=== PATIENT | female | born 1960 | race Hispanic/Latino ===

== ENCOUNTER 2020-10-08 04:16 | Inpatient (IN) | payer BC ==
[2020-10-08] MEDS ORDERED: Morphine 4 MG/ML VIAL ONE (04:44)
[2020-10-08] MEDS ORDERED: Ondansetron PF 4 MG/2 ML Vial ONE (04:45)
[2020-10-08 04:51] LABS: #Basophils 0.1 10x3/uL (0.0-0.2); #Eosinphils 0.1 10x3/uL (0.0-0.5); #Monocytes 0.7 10x3/uL (0.0-1.1); #Neutrophils 10.9 10x3/uL (1.5-8.4); %Basophils 0.4 % (0.0-2.0); %Eosinophils 0.7 % (0.0-6.0); %Lymphocytes 10.9 % (18.0-47.0); %Neutrophils 82.2 % (40.0-75.0); Hemoglobin 13.5 g/dL (12.0-15.5); Mean Corpuscular HGB CONC 34.6 g/dL (32.0-36.0); Mean Corpuscular Hemoglobin 31.2 pg (27.0-33.0); Mean Corpuscular Volume 90.1 fl (81.6-98.3); Platelet Count 248 10x3/uL (150-450); RBC Distribution Width 11.9 % (11.5-14.5); Red Blood Cell (RBC) Count 4.33 10x6/uL (3.90-5.03); White Blood Cell (WBC) Count 13.3 10x3/uL (3.5-10.5)
[2020-10-08 05:06] LABS: ALT (SGPT) 75 U/L (8-55); AST (SGOT) 117 U/L (5-34); Albumin 4.3 g/dL (3.5-5.0); Alkaline Phosphatase 96 U/L (40-110); Anion Gap 14 mmol/L (10-20); BUN (Urea Nitrogen) 17 mg/dL (9.8-20.1); Bilirubin, Total 0.8 mg/dL (0.2-1.2); Calc. Creatinine Clearance 0 mL/min (70-130); Calcium 9.6 mg/dL (7.8-10.44); Carbon Dioxide 24 mmol/L (22-29); Chloride 104 mmol/L (98-107); Glucose 164 mg/dL (70-105); Lipase 31 U/L (8-78); Potassium 4.1 mmol/L (3.5-5.1); Protein, Total 7.3 g/dL (6.0-8.3); Sodium 138 mmol/L (136-145)
[2020-10-08] MEDS ORDERED: Piperacillin/Tazobactam 4.5 GM VIAL ONE (06:12)
[2020-10-08] MEDS ORDERED: Senokot S 8.6-50 MG TAB PO PRN (06:22)
[2020-10-08] MEDS ORDERED: Zolpidem Tartrate 5 MG TAB PO PRN (06:22)
[2020-10-08] MEDS ORDERED: Calcium Carbonate 500 MG ChewTAB PO PRN (06:22)
[2020-10-08] MEDS ORDERED: HYDROmorphone 0.5 MG/0.5 ML SYRINGE ONE (06:35)
[2020-10-08 07:18] VITALS: BMI 25.7
[2020-10-08 07:29] LABS: SARS-CoV-2 NAA Rapid Test Not Detected (NotDetected)
[2020-10-08] MEDS: Sodium Chloride 0.9% 1,000 ML IV SCH ×3 (11:01→21:56)
[2020-10-08] MEDS: Famotidine/PF 20 mg/2ml Vial SLOW IVP SCH ×2 (11:05→21:03)
[2020-10-08] MEDS: Piperacillin/Tazobactam 3.375 GM in Sodium Chloride 0.9% 100 ML IVPB SCH ×2 (11:05→18:33)
[2020-10-08] MEDS: Enoxaparin Sodium 40 MG/0.4 ML SYRINGE SC SCH (11:11)
[2020-10-08 11:32] LABS: Bilirubin Neg (Negative); Blood, Urine Negative (Negative); Clarity Clear (Clear); Glucose, Urine (Dipstick) Normal (Negative); Ketone, Urine Negative (Negative); Leukocyte Negative (Negative); Nitrite Negative (Negative); Protein, Urine (Dipstick) Negative (Neg-Trace); Urobilinogen Normal mg/dL (Less than 2)
[2020-10-08 12:20] LABS: RBC/HPF 0-3 HPF (0-3); Squamous Epithelial 0-3 HPF (0-3); Transitional Epithelial 0-3 HPF (None Seen); WBC/HPF None Seen HPF (0-3)
[2020-10-08 12:21] LABS: Bacteria/HPF Rare-Few HPF (None Seen)
[2020-10-08] MEDS: Morphine 4 MG/ML VIAL SLOW IVP PRN ×3 (13:44→23:33)
[2020-10-08] MEDS: Ondansetron PF 4 MG/2 ML Vial IVP PRN (18:38)
[2020-10-09] MEDS: Piperacillin/Tazobactam 3.375 GM in Sodium Chloride 0.9% 100 ML IVPB SCH ×3 (02:43→18:25)
[2020-10-09] MEDS: Sodium Chloride 0.9% 1,000 ML IV SCH ×3 (05:03→23:25)
[2020-10-09] MEDS: Morphine 4 MG/ML VIAL SLOW IVP PRN ×3 (05:05→19:59)
[2020-10-09 05:19] LABS: #Eosinphils 0.1 10x3/uL (0.0-0.5); #Monocytes 0.6 10x3/uL (0.0-1.1); #Neutrophils 5.1 10x3/uL (1.5-8.4); %Basophils 0.3 % (0.0-2.0); %Eosinophils 1.3 % (0.0-6.0); %Lymphocytes 16.4 % (18.0-47.0); %Monocytes 8.2 % (0.0-10.0); %Neutrophils 73.4 % (40.0-75.0); Hemoglobin 11.4 g/dL (12.0-15.5); Mean Corpuscular HGB CONC 33.6 g/dL (32.0-36.0); Mean Corpuscular Hemoglobin 31.1 pg (27.0-33.0); Mean Corpuscular Volume 92.6 fl (81.6-98.3); Mean Platelet Volume 10.4 fl (7.4-10.4); Platelet Count 188 10x3/uL (150-450); Red Blood Cell (RBC) Count 3.66 10x6/uL (3.90-5.03)
[2020-10-09 05:35] LABS: ALT (SGPT) 376 U/L (8-55); AST (SGOT) 237 U/L (5-34); Albumin 3.4 g/dL (3.5-5.0); Alkaline Phosphatase 88 U/L (40-110); Anion Gap 9 mmol/L (10-20); BUN (Urea Nitrogen) 7 mg/dL (9.8-20.1); Bilirubin, Total 0.7 mg/dL (0.2-1.2); Calc. Creatinine Clearance 90 mL/min (70-130); Calcium 8.4 mg/dL (7.8-10.44); Carbon Dioxide 25 mmol/L (22-29); Chloride 111 mmol/L (98-107); Globulin 2.6 g/dL (2.4-3.5); Glucose 103 mg/dL (70-105); Potassium 3.7 mmol/L (3.5-5.1); Sodium 141 mmol/L (136-145)
[2020-10-09] MEDS: Enoxaparin Sodium 40 MG/0.4 ML SYRINGE SC SCH (09:44)
[2020-10-09] MEDS: Famotidine/PF 20 mg/2ml Vial SLOW IVP SCH ×2 (09:45→21:16)
[2020-10-09] MEDS: Ondansetron PF 4 MG/2 ML Vial IVP PRN (11:07)
[2020-10-10] MEDS: Morphine 4 MG/ML VIAL SLOW IVP PRN ×4 (01:53→19:37)
[2020-10-10] MEDS: Piperacillin/Tazobactam 3.375 GM in Sodium Chloride 0.9% 100 ML IVPB SCH ×3 (01:56→17:46)
[2020-10-10 06:37] LABS: #Eosinphils 0.1 10x3/uL (0.0-0.5); #Monocytes 0.5 10x3/uL (0.0-1.1); #Neutrophils 3.5 10x3/uL (1.5-8.4); %Basophils 0.4 % (0.0-2.0); %Eosinophils 1.8 % (0.0-6.0); %Lymphocytes 26.1 % (18.0-47.0); %Monocytes 9.3 % (0.0-10.0); %Neutrophils 62.2 % (40.0-75.0); Hemoglobin 11.7 g/dL (12.0-15.5); Mean Corpuscular HGB CONC 34.4 g/dL (32.0-36.0); Mean Corpuscular Hemoglobin 31.5 pg (27.0-33.0); Mean Corpuscular Volume 91.4 fl (81.6-98.3); Mean Platelet Volume 10.5 fl (7.4-10.4); Platelet Count 178 10x3/uL (150-450); RBC Distribution Width 11.6 % (11.5-14.5); Red Blood Cell (RBC) Count 3.72 10x6/uL (3.90-5.03); White Blood Cell (WBC) Count 5.6 10x3/uL (3.5-10.5)
[2020-10-10 06:58] LABS: ALT (SGPT) 249 U/L (8-55); AST (SGOT) 103 U/L (5-34); Albumin 3.5 g/dL (3.5-5.0); Alkaline Phosphatase 93 U/L (40-110); Anion Gap 13 mmol/L (10-20); BUN (Urea Nitrogen) 5 mg/dL (9.8-20.1); Bilirubin, Total 0.6 mg/dL (0.2-1.2); Calc. Creatinine Clearance 97 mL/min (70-130); Calcium 8.5 mg/dL (7.8-10.44); Carbon Dioxide 22 mmol/L (22-29); Chloride 107 mmol/L (98-107); Globulin 2.8 g/dL (2.4-3.5); Glucose 66 mg/dL (70-105); Potassium 3.4 mmol/L (3.5-5.1); Protein, Total 6.3 g/dL (6.0-8.3); Sodium 139 mmol/L (136-145)
[2020-10-10] MEDS: Enoxaparin Sodium 40 MG/0.4 ML SYRINGE SC SCH (09:05)
[2020-10-10] MEDS: Famotidine/PF 20 mg/2ml Vial SLOW IVP SCH ×2 (09:05→21:14)
[2020-10-10] MEDS: Sodium Chloride 0.9% 1,000 ML IV SCH ×2 (09:08→14:14)
[2020-10-11] MEDS: Sodium Chloride 0.9% 1,000 ML IV SCH ×4 (00:57→21:16)
[2020-10-11] MEDS: Piperacillin/Tazobactam 3.375 GM in Sodium Chloride 0.9% 100 ML IVPB SCH ×3 (02:08→18:56)
[2020-10-11] MEDS: Morphine 4 MG/ML VIAL SLOW IVP PRN ×3 (02:15→19:00)
[2020-10-11] MEDS: Ondansetron PF 4 MG/2 ML Vial IVP PRN (08:02)
[2020-10-11] MEDS: Famotidine/PF 20 mg/2ml Vial SLOW IVP SCH ×2 (08:02→21:16)
[2020-10-11] MEDS: Enoxaparin Sodium 40 MG/0.4 ML SYRINGE SC SCH (08:02)
[2020-10-12] MEDS: Morphine 4 MG/ML VIAL SLOW IVP PRN ×4 (00:03→20:37)
[2020-10-12] MEDS: Piperacillin/Tazobactam 3.375 GM in Sodium Chloride 0.9% 100 ML IVPB SCH ×3 (01:45→19:00)
[2020-10-12] MEDS: Sodium Chloride 0.9% 1,000 ML IV SCH ×3 (05:00→20:38)
[2020-10-12 05:18] LABS: #Eosinphils 0.2 10x3/uL (0.0-0.5); #Monocytes 0.5 10x3/uL (0.0-1.1); #Neutrophils 2.3 10x3/uL (1.5-8.4); %Basophils 0.8 % (0.0-2.0); %Eosinophils 4.1 % (0.0-6.0); %Lymphocytes 36.9 % (18.0-47.0); Hemoglobin 11.6 g/dL (12.0-15.5); Mean Corpuscular HGB CONC 34.6 g/dL (32.0-36.0); Mean Corpuscular Hemoglobin 31.1 pg (27.0-33.0); Mean Corpuscular Volume 89.8 fl (81.6-98.3); Mean Platelet Volume 10.1 fl (7.4-10.4); Platelet Count 222 10x3/uL (150-450); RBC Distribution Width 11.7 % (11.5-14.5); Red Blood Cell (RBC) Count 3.73 10x6/uL (3.90-5.03); White Blood Cell (WBC) Count 4.9 10x3/uL (3.5-10.5)
[2020-10-12 05:29] LABS: ALT (SGPT) 135 U/L (8-55); AST (SGOT) 36 U/L (5-34); Albumin 3.5 g/dL (3.5-5.0); Alkaline Phosphatase 103 U/L (40-110); Anion Gap 12 mmol/L (10-20); BUN (Urea Nitrogen) 4 mg/dL (9.8-20.1); Bilirubin, Total 0.4 mg/dL (0.2-1.2); Calc. Creatinine Clearance 99 mL/min (70-130); Calcium 8.7 mg/dL (7.8-10.44); Carbon Dioxide 25 mmol/L (22-29); Chloride 108 mmol/L (98-107); Globulin 2.8 g/dL (2.4-3.5); Glucose 97 mg/dL (70-105); Potassium 3.5 mmol/L (3.5-5.1); Protein, Total 6.3 g/dL (6.0-8.3); Sodium 141 mmol/L (136-145)
[2020-10-12] MEDS: Enoxaparin Sodium 40 MG/0.4 ML SYRINGE SC SCH (07:58)
[2020-10-12] MEDS: Famotidine/PF 20 mg/2ml Vial SLOW IVP SCH ×2 (07:59→20:36)
[2020-10-12] MEDS: Ondansetron PF 4 MG/2 ML Vial IVP PRN (07:59)
[2020-10-12] MEDS ORDERED: Promethazine HCl 25 MG/ML VIAL ONE (12:49)
[2020-10-12] MEDS ORDERED: Promethazine HCl 12.5 MG in Sodium Chloride 0.9% 50 ML IVPB PRN (15:11)
[2020-10-13] MEDS: Morphine 4 MG/ML VIAL SLOW IVP PRN ×2 (04:26→16:35)
[2020-10-13] MEDS: Piperacillin/Tazobactam 3.375 GM in Sodium Chloride 0.9% 100 ML IVPB SCH ×2 (04:29→10:50)
[2020-10-13] MEDS: Sodium Chloride 0.9% 1,000 ML IV SCH ×3 (06:15→23:32)
[2020-10-13] MEDS: Enoxaparin Sodium 40 MG/0.4 ML SYRINGE SC SCH (08:53)
[2020-10-13] MEDS: Famotidine/PF 20 mg/2ml Vial SLOW IVP SCH ×2 (08:53→21:20)
[2020-10-13] MEDS: Ondansetron PF 4 MG/2 ML Vial IVP PRN (10:45)
[2020-10-13] MEDS: HYDROcodone/Acetaminophen 5/325 mg Tablet PO PRN (21:20)
[2020-10-14] MEDS: HYDROcodone/Acetaminophen 5/325 mg Tablet PO PRN (02:44)
[2020-10-14 04:10] LABS: #Eosinphils 0.2 10x3/uL (0.0-0.5); #Monocytes 0.5 10x3/uL (0.0-1.1); #Neutrophils 2.5 10x3/uL (1.5-8.4); %Basophils 0.7 % (0.0-2.0); %Eosinophils 3.9 % (0.0-6.0); %Lymphocytes 41.1 % (18.0-47.0); %Monocytes 9.3 % (0.0-10.0); %Neutrophils 44.8 % (40.0-75.0); Hemoglobin 11.5 g/dL (12.0-15.5); Mean Corpuscular HGB CONC 34.6 g/dL (32.0-36.0); Mean Corpuscular Hemoglobin 30.3 pg (27.0-33.0); Mean Corpuscular Volume 87.6 fl (81.6-98.3); Mean Platelet Volume 9.9 fl (7.4-10.4); Platelet Count 238 10x3/uL (150-450); RBC Distribution Width 11.9 % (11.5-14.5); Red Blood Cell (RBC) Count 3.79 10x6/uL (3.90-5.03); White Blood Cell (WBC) Count 5.6 10x3/uL (3.5-10.5)
[2020-10-14 04:27] LABS: ALT (SGPT) 100 U/L (8-55); AST (SGOT) 39 U/L (5-34); Albumin 3.4 g/dL (3.5-5.0); Alkaline Phosphatase 96 U/L (40-110); Anion Gap 14 mmol/L (10-20); BUN (Urea Nitrogen) 4 mg/dL (9.8-20.1); Bilirubin, Total 0.4 mg/dL (0.2-1.2); Calc. Creatinine Clearance 93 mL/min (70-130); Calcium 8.7 mg/dL (7.8-10.44); Carbon Dioxide 25 mmol/L (22-29); Chloride 109 mmol/L (98-107); Globulin 2.6 g/dL (2.4-3.5); Glucose 91 mg/dL (70-105); Potassium 3.6 mmol/L (3.5-5.1); Sodium 144 mmol/L (136-145)
[2020-10-14] MEDS: Ondansetron PF 4 MG/2 ML Vial IVP PRN (05:15)
[2020-10-14] MEDS: Enoxaparin Sodium 40 MG/0.4 ML SYRINGE SC SCH (09:07)
[2020-10-14] MEDS: Famotidine/PF 20 mg/2ml Vial SLOW IVP SCH (09:11)
[2020-10-14 13:13] LABS: SARS-CoV-2 NAA Rapid Test Not Detected (NotDetected)
[2020-10-14 16:16] VITALS: BP 169/93; TEMP 97.7
== END 2020-10-14 16:44 | disposition home or self-care (01) | DRG 446 ==
LOC: CSHERS 04:16 → CSHTELE 07:11
PROVIDERS: ADMIT Student in an Organized Health Care Education/Training Program; ATTEND Family Medicine
DX: K83.1 Obstruction of bile duct (principal); R74.01 Elevation of levels of liver transaminase levels; E78.5 Hyperlipidemia, unspecified; Z20.822 Contact with and (suspected) exposure to COVID-19; Z90.49 Acquired absence of other specified parts of digestive tract; Z83.3 Family history of diabetes mellitus; D72.829 Elevated white blood cell count, unspecified; K83.8 Other specified diseases of biliary tract; R79.89 Other specified abnormal findings of blood chemistry
CPT/HCPCS: 36415; 74177; 74181; 80053; 81001; 83690; 84484; 85025; 93005; 96365; 96375; J1170; J1650; J2270; J2405; J2543; J2550; J3490; J7050; S0028; U0002

== ENCOUNTER 2021-02-19 08:21 | Emergency (ER) | payer BC ==
[2021-02-19] MEDS ORDERED: Bicillin LA 1.2 MILLION UNITS/2 ML SYRINGE ONE (08:47)
== END 2021-02-19 08:50 | disposition home or self-care (01) ==
LOC: CSHERS 08:21
DX: J02.0 Streptococcal pharyngitis (principal)
CPT/HCPCS: 96372; 99282; J0561

== ENCOUNTER 2022-09-28 08:30 | Outpatient (CLI) | payer BC ==
[2022-09-28] MEDS ORDERED: Magnevist 469MG/ML 20 ML VIAL ONE (15:14)
== END 2022-09-28 08:31 | disposition home or self-care (01) ==
LOC: CSHMRI 08:30
PROVIDERS: ATTEND Physician Assistant Medical
DX: K86.1 Other chronic pancreatitis (principal); R10.11 Right upper quadrant pain; K83.1 Obstruction of bile duct
CPT/HCPCS: 74183; A9579

== ENCOUNTER 2024-03-19 17:44 | Emergency (ER) | payer OTHER ==
[~2024-03-19 17:44] MED LIST: Iopamidol 300 61% 100 ML VIAL FS ONE
[2024-03-19] MEDS ORDERED: Ondansetron PF 4 MG/2 ML Vial ONE (18:36)
[2024-03-19] MEDS ORDERED: Morphine 4 MG/ML VIAL ONE (18:36)
[2024-03-19 18:56] LABS: #Basophils 0.04 10x3/uL (0.0-0.2); #Eosinphils 0.02 10x3/uL (0.0-0.5); #Monocytes 0.65 10x3/uL (0.0-1.1); #Neutrophils 13.63 10x3/uL (1.5-8.4); %Basophils 0.2 % (0.0-2.0); %Eosinophils 0.1 % (0.0-6.0); %Lymphocytes 10.8 % (18.0-47.0); %Neutrophils 84.5 % (40.0-75.0); Hematocrit 37.8 % (34.9-44.5); Hemoglobin 12.8 g/dL (12.0-15.5); Mean Corpuscular HGB CONC 33.9 g/dL (32.0-36.0); Mean Corpuscular Hemoglobin 30.4 pg (27.0-33.0); Mean Corpuscular Volume 89.8 fL (81.6-98.3); Mean Platelet Volume 9.9 fL (7.4-10.4); Platelet Count 333 10x3/uL (150-450); Red Blood Cell (RBC) Count 4.21 10x6/uL (3.90-5.03); White Blood Cell (WBC) Count 16.2 10x3/uL (3.5-10.5)
[2024-03-19 18:58] LABS: ALT (SGPT) 349 U/L (8-55); AST (SGOT) 324 U/L (5-34); Alkaline Phosphatase 419 U/L (40-110); Anion Gap 17 mmol/L (10-20); BUN (Urea Nitrogen) 9 mg/dL (9.8-20.1); Bilirubin, Total 1.4 mg/dL (0.2-1.2); Calc. Creatinine Clearance 0 mL/min (70-130); Carbon Dioxide 22 mmol/L (23-31); Chloride 103 mmol/L (98-107); Estimated GFR 87; Globulin 3.8 g/dL (2.4-3.5); Glucose 110 mg/dL (80-115); Lipase 61 U/L (8-78); Potassium 3.5 mmol/L (3.5-5.1); Protein, Total 7.8 g/dL (5.8-8.1); Sodium 138 mmol/L (136-145)
[2024-03-19 19:22] LABS: Magnesium 2.1 mg/dL (1.6-2.6)
[2024-03-19 19:26] LABS: Bilirubin Neg (Negative); Blood, Urine Negative (Negative); Clarity Cloudy (Clear); Glucose, Urine (Dipstick) Normal (Negative); Ketone, Urine 150 mg/dL (Negative); Leukocyte 100 (Negative); Nitrite Negative (Negative); Protein, Urine (Dipstick) 15 mg/dl (Neg-Trace); Specific Gravity, Urine 1.015 (1.005-1.030); Urobilinogen Normal mg/dL (Less than 2)
[2024-03-19 19:54] LABS: Bacteria/HPF 2+ HPF (None Seen); CAUTI Indications for Culture Pelvic or flank pain; Mucous/LPF 1+ LPF (<2+); RBC/HPF 0-3 HPF (0-3); Squamous Epithelial 0-3 HPF (0-3); Transitional Epithelial 0-3 HPF (None Seen)
[2024-03-19 19:57] LABS: Urine Culture Reflex No No
[2024-03-19] MEDS ORDERED: Piperacillin/Tazobactam 3.375 GM VIAL ONE (20:11)
[2024-03-19] MEDS ORDERED: Piperacillin/Tazobactam 4.5 GM VIAL ONE (20:21)
[2024-03-19] MEDS ORDERED: Ketorolac Tromethamine 30 MG (1 mL) VIAL ONE (20:22)
== END 2024-03-20 04:15 | disposition short-term general hospital (02) ==
LOC: CSHERS 17:44
DX: N39.0 Urinary tract infection, site not specified (principal); K83.09 Other cholangitis; K83.8 Other specified diseases of biliary tract
CPT/HCPCS: 36415; 74177; 76705; 80053; 81001; 83605; 83690; 83735; 85025; 93005; 96374; 96375; 96376; J1885; J2272; J2405; J2543; Q9967